=== PATIENT | female | born 1960 | race Caucasian/White ===

== ENCOUNTER → 2016-10-19 | Outpatient (CLI) | payer OTHER, BC ==
--- NOTE | 2016-10-19 11:15 | NOWCEV ---
[facility] OUTPATIENT REHABILITATION SERVICES WHEELCHAIR CLINIC EVALUATION AND LETTER OF JUSTIFICATION Patient Name: LUCIA LOPEZ Physician: Chris Anderson MD Eval Date: 10/19/16 Therapist: Myriam Byrne PT,MSPT Date of : 1960 MR#: [id number] Contact: [] Subscriber: LUCIA LPOEZ Primary Ins: MEDICARE OUTPATIENT Subscriber #: [id number] EVALUATION FINDINGS Medical history - Lucia is a 56y/o female with a 27year h/o relapsing remitting multiple sclerosis (MS). She reports having five exacerbations in the past two years, which all required hospitalization. When Lucia experiences an exacerbation she is not able to ambulate, even household distances. She also reports regularly having difficulty performing ADLs and household tasks due to her MS. Lucia was referred to this clinic by her doctor to have recommendations made for the most medically appropriate wheelchair to meet Lucia's needs within the home. Functional Mobility - Hinas mobility is limited by her MS. During a flair, she is unable to ambulate and relies on her to push her in a transport chair. When she is not experiencing a flair, Lucia can ambulate household distances with a sc or she furniture walks. She reports that in the community to attend medical apts she either utilizes a transport chair propelled by her , or holds onto her 's arm for support. On this date, Lucia is able to ambulate, but her gait is characterized by a slow pattern, with decreased trunk rotation, decreased arms swing, B feet ER, walking on the lateral boarder of her feet with decreased visual tracking. She reports her ability to ambulate fluctuates greatly depending on her fatigue. She experiences significant cramping/spasms in her shins, calves, thighs, and gluteals when walking short/household distances or when standing. This causes her to have to sit for several hours to recover prior to being able to walk again. Lucia is independent with stand step transfers with use of UE support and is independent with bed mobility. Motor involvement - Lucia's LEs are more greatly impacted by her MS than her UEs. MMT is as follows: DF B: 3/5, eversion B: 3+/5, inversion B: 4-/5, knee extension B: 4-/5, hip flexion B: 3+/5, hip abduction B: 2+/5, shoulder abduction B: 4-/5, shoulder flexion B: 4/5 with fatiguable weakness decreasing to 4-/5, elbow flexion B: 4/5, elbow extension B: 4/5. Lucia's strength can fluctuate greatly depending on her level of fatigue and if she is experiencing a flair. Lucia does have significant spasms in her LEs that cause her LEs to move into a rigid extensor pattern. This occurs when walking or when her feet are stimulated. She has tightness in B gastroc with 0degrees DF B, and tightness in B hamstrings. Posture - Lucia sit with level pelvis and shoulders. Skin Sensation - Lucia has neuropathy in B feet. Her sensation is absent in B feet and impaired up B legs to above her knees. She reports h/o a wound on her L conrad that took 9 months to heal, as well as fracturing her toe without knowing. Endurance - Lucia has poor endurance from her MS. When she is experiencing a MS flair, she is unable to ambulate, as she looses control of her LEs. She reports several of her hospitalizations have been prolonged due to her inability to ambulate household distances. When she is not experiencing a flair , she reports limited mobility within her home due to MS fatigue and weakness. She is frequently unable to participate in household tasks such as cooking, and spends much of her time bound to her couch because of her fatigue. She reports 2-3 "good" days a week where she can ambulate household distances, and 4-5 days a week where she has to sit or lay down for the majority of the day. At her best, she is able to ambulate a couple hundred feet, but this causes significant cramping in her shins, calves and thighs, causing her to have to take frequent breaks. She reports having to sit for several hours to recover prior to any continued activity. ADLs - Lucia performs ADLs such as bathing with adaptive strategies. She utilizes both grab bars and a shower seat to manage her fatigue. She relies on her to wash her hair, as her arms fatigue when holding them overhead. She is I with toileting. 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 She was forced into medical prison due to her frequent MS flairs. She lives with her in a 2 story home in which they are installing a stair lift to allow Lucia to access the upper level of the home. There are 2 steps to enter which they are going to install a ramp to allow wheelchair access. Current wheelchair - Lucia owns a transport chair which was purchased out of pocket. She utilizes the chair in the home when she is experiencing an MS flair. She is not able to self propel the transport chair, and has to be dependently pushed by her . MEDICAL and FUNCTIONAL NEED/OBJECTIVES * To procure an ultra light weight MWC to provide Lucia with safe and consistent access to her home and medical appointment when she is experiencing fatigue or exacerbation of her MS. PRIMARY FUNCTIONAL LIMITATION (G Code) * Mobility CURRENT STATUS OF PRIMARY FUNCTIONAL LIMITATION (Severity Modifier) * At least 40 percent but less than 60 percent impaired, limited or restricted ( CK) GOAL STATUS OF PRIMARY FUNCTIONAL LIMITATION (Severity Modifier) * At least 40 percent but less than 60 percent impaired, limited or restricted ( CK) DISCHARGE STATUS OF PRIMARY FUNCTIONAL LIMITATION (Severity Modifier) * At least 40 percent but less than 60 percent impaired, limited or restricted ( CK) EQUIPMENT RECOMMENDATIONS AND JUSTIFICATIONS The following recommendations are believed to be the most cost effective way to meet the patients medical and functional needs. * Ultra light weight folding frame MWC: Needed to provide Lucia with safe and consistent access to her home, and to maximize her participation in MRADLs when experiencing an exacerbation or increased fatigue/weakness from her MS. This is necessary, as Lucia experiences periods when she is unable to walk, even with an AD such as a cane or walker due to exacerbation of her MS where she loses control of her LEs. She is frequently not able to participate in MRADLs such as cooking or cleaning within the home due to fatigue and weakness from her MS, which limits her ability to walk and stand. An ultra light weight MWC will allow Lucia to access her home and conserve energy in order to maximize her function/participation even when experiencing an MS flair or exacerbation. Additionally it will decrease Lucia's reliance on her for household mobility. A standard weight MWC would not be appropriate as Lucia experiences significant fatiguable weakness. A heavier chair would cause fatigue and decrease her ability to participate in MRADLs. Additionally she would be unable to self propel a standard weight wheelchair up the ramp to enter her home. Lucia will be able to safely and independently transfer to/from her [facility]. * Skin protection positioning cushion: Needed to provide Lucia with appropriate pressure relief and distribution as she has severely impaired sensation and h/o poor wound healing. Additionally, a positioning cushion is necessary to maintain the position of Lucia's pelvis in her chair when she experiences extensor spasms. This will maximize her safely and posture for self propulsion. * Heel loops: Needed to maintain the position of Lucia's LEs and feet on her foot plates to maintain proper postural alignment in order to maximize ability to self propel and to manage her spasms. * Side guards: Needed to prevent Lucia's clothing from becoming caught in wheels when self propelling. * Anti-tippers: Needed to prevent Lucia's chair from tipping over backward when going up ramps or when she experiences spams which force her into an extensor pattern. * Pelvic positioning belt: Needed to stabilize the position of Lucia's pelvis in her chair when she experiences extensor spams, and for safety during propulsion. * Cane smith: Needed to allow Lucia to access her cane to ambulate short distances when a wheelchair is not appropriate such as when maneuvering in smaller spaces. This will prevent her cane from interfering with her propulsion strategy. These recommendations are based on the likelihood that Lucia will require the use of a wheelchair for mobility for the rest of her life. If you have any questions or concerns regarding the stated recommendations, please feel free to contact the therapist at . Thank you for your cooperation in obtaining the necessary equipment for this patient. TETE Guerra
== END ==
PROVIDERS: ATTEND Psychiatry & Neurology Neurology
DX: Z46.89 Encounter for fitting and adjustment of other specified devices (principal); G35 Multiple sclerosis; I10 Essential (primary) hypertension; E03.9 Hypothyroidism, unspecified; E11.9 Type 2 diabetes mellitus without complications; G47.30 Sleep apnea, unspecified
CPT/HCPCS: 97163; G8978; G8979; G8980

== ENCOUNTER 2017-02-10 06:43 | Day surgery (SDC) | payer OTHER, BC ==
[~2017-02-10 06:43] MED LIST: ceFAZolin 2 GM/DEXTROSE 100 ML IV ONE
[2017-02-10] MEDS ORDERED: BUPIVACAINE 0.5% 30 ML SDV ONE (06:45)
[2017-02-10] MEDS ORDERED: LR 1,000 ML IV ONE (06:58)
[2017-02-10] MEDS ORDERED: LIDOCAINE 1% 2 ML INJ ID PRN (06:58)
--- NOTE | 2017-02-10 07:22 | PDHPUP ---
History & Physical Update H&P update statement: This history and physical update is based on an assessment of the patient which was completed after admission or registration (within 24 hours), but prior to the surgery/procedure.
[2017-02-10 07:30] VITALS: PULSE 77
[2017-02-10] MEDS ORDERED: MIDAZOLAM 2 MG/2 ML VIAL ONE (07:36)
[2017-02-10] MEDS ORDERED: MIDAZOLAM 2 MG/2 ML VIAL IVP ONE (07:36)
--- NOTE | 2017-02-10 07:43 | PDANEPAE ---
ANE History of Present Illness Left hand surgery ANE Past Medical History - Cardiovascular History Hx Hypertension: Yes Hx Arrhythmias: No Hx Chest Pain: No Hx Coronary Artery / Peripheral Vascular Disease: No Hx CHF / Valvular Disease: No Hx Palpitations: No - Pulmonary History Hx COPD: No Hx Asthma/Reactive Airway Disease: No Hx Recent Upper Respiratory Infection: No Hx Oxygen in Use at Home: No Hx Sleep Apnea: Yes Sleep Apnea Screening Result - Last Documented: Positive Pulmonary History Comment: PT WILL BRING CPAP MACHINE - Neurologic History Hx Cerebrovascular Accident: No Hx Seizures: No Hx Dementia: No - Endocrine History Hx Diabetes: Yes Hypothyroid: Yes Obesity: mild - Renal History Hx Renal Disorders: No - Liver History Hx Hepatic Disorders: No - Neurological & Psychiatric Hx Hx Neurological and Psychiatric Disorders: Yes Neurological / Psychiatric History Comment: MS - Cancer History Hx Cancer: No - Congenital Disorder History Hx Congenital Disorders: No - GI History Hx Gastrointestinal Disorders: Yes Gastrointestinal History Comment: IBS SPASTIC COLON, - Other Health History Other Health History: NONE - Chronic Pain History Chronic Pain: Yes (MUSCLE SPASMS) - Surgical History Prior Surgeries: 1/2 THYROID REMOVED 1985. HYSRECTOMY 1989 ANE Review of Systems Review of Systems: - Exercise capacity METS (RN): 4 METS ANE Patient History - Allergies Allergies/Adverse Reactions: meperidine HCl [From Demerol] Allergy (Intermediate, Verified 09/09/15 10:17) Sulfa (Sulfonamide Antibiotics) Allergy (Intermediate, Verified 09/09/15 10:17) codeine [Codeine] Allergy (Unknown, Verified 09/09/15 10:17) bacitracin [From Triple Antibiotic] Allergy (Verified 09/09/15 10:17) bacitracin zinc [From Triple Antibiotic] Allergy (Verified 09/09/15 10:17) colistimethate sodium [From Triple Antibiotic] Allergy (Verified 09/09/15 10:17) fentanyl Allergy (Verified 02/08/17 18:10) glatiramer acetate [From Copaxone] Allergy (Verified 09/09/15 10:17) gramicidin D [From Triple Antibiotic] Allergy (Verified 09/09/15 10:17) morphine Allergy (Verified 09/09/15 10:17) neomycin sulfate [From Triple Antibiotic] Allergy (Verified 09/09/15 10:17) polymyxin B [From Triple Antibiotic] Allergy (Verified 09/09/15 10:17) polymyxin B sulfate [From Triple Antibiotic] Allergy (Verified 09/09/15 10:17) pramoxine HCl [From Triple Antibiotic] Allergy (Verified 09/09/15 10:17) - Home Medications Home Medications: AMITRIPTYLINE HCL [Amitriptyline 25 mg] 03/25/11 [Last Taken 02/09/17 22:00] Tizanidine HCl 03/25/11 [Last Taken 02/09/17 22:00] CALCIUM CARBONATE/VITAMIN D3 [CALCIUM + D 600 MG TABLET] 08/17/12 [Last Taken 02/08/17] Naproxen Sodium [Aleve 220 MG (*)] 08/17/12 [Last Taken 02/01/17] Stilwell-3 Fatty Acids [Fish Oil 1000 mg (*)] 08/17/12 [Last Taken 09/02/16] Vitamin B Complex [Vitamin B Complex (OTC)] 08/17/12 [Last Taken 02/01/17] Aspirin [Aspirin 325 mg (*)] 01/18/13 [Last Taken 02/06/17] Herbals/Supplements -Info Only 01/18/13 [Last Taken 02/01/17] Dalfampridine [AMPYRA] 12/07/13 [Last Taken 02/09/17 21:15] Dimethyl Fumarate [Tecfidera] 12/07/13 [Last Taken 02/10/17 05:30] Acetaminophen [Tylenol 325mg (*)] 02/09/17 [Last Taken 12/02/16] Baclofen [Baclofen 20 mg (*)] 02/09/17 [Last Taken 02/01/17] Basaglar Mohini U-100 02/09/17 [Last Taken 02/08/17 23:00] Estrogens,Conjugated [Premarin 0.625 MG (*)] 02/09/17 [Last Taken 02/10/17 05: 30] Hydrochlorothiazide [HCTZ (*)] 02/09/17 [Last Taken 02/09/17] Levothyroxine [Synthroid 75 mcg (*)] 02/09/17 [Last Taken 02/10/17 05:30] Meclizine HCl [Meclizine HCl 25 mg (RX,OTC)] 02/09/17 [Last Taken Unknown] Metoprolol Succinate Xr [Toprol Xl 50 mg (*)] 02/09/17 [Last Taken 02/10/17 05: 30] Simvastatin [Zocor 10 mg] 02/09/17 [Last Taken 02/02/17 22:30] Valsartan [Diovan (*)] 02/09/17 [Last Taken 02/10/17 05:30] metFORMIN HCL [Glucophage 850 mg (*)] PO 02/09/17 [Last Taken 02/09/17 18:00] - NPO status NPO Since - Liquids (Date): 02/09/17 NPO Since - Liquids (Time): 23:30 NPO Since - Solids (Date): 02/09/17 NPO Since - Solids (Time): 17:00 - Anes Hx Anes Hx: no prior problems - Smoking Hx Smoking Status: Never smoked - Alcohol Use Alcohol Use: None - Family Anes Hx Family Anes Hx: none Family Hx Anesthesia Complications: NONE ANE Labs/Vital Signs - Vital Signs Blood Pressure: 111/77 Heart Rate: 77 Respiratory Rate: 16 O2 Sat (%): 96 Height: 167.64 cm Weight: 87.09 kg ANE Physical Exam - Airway Neck exam: FROM Mallampati Score: Class 2 Mouth exam: normal dental/mouth exam - Pulmonary Pulmonary: no respiratory distress - ASA Status ASA Status: III ANE Anesthesia Plan Anesthesia Plan: GA w LMA
[2017-02-10] MEDS ORDERED: PROPOFOL/EMULSION 500 MG/50 ML BOTTLE IV ONE (07:53)
[2017-02-10] MEDS ORDERED: fentaNYL 100 MCG/2 ML INJ ONE (07:53)
[2017-02-10] MEDS ORDERED: PHENYLEPHRINE HCL 100 MCG/ML SYR ONE (08:19)
[2017-02-10] MEDS ORDERED: PROPOFOL 200 MG/20 ML VIAL ONE (08:29)
[2017-02-10] MEDS ORDERED: ONDANSETRON 4 MG/2 ML VIAL ONE (08:40)
[2017-02-10] MEDS ORDERED: DEXAMETHASONE 4 MG/ML VIAL ONE (08:46)
[2017-02-10] MEDS ORDERED: HYDROCODONE/APAP 5/325 TAB PO PRN (08:58)
[2017-02-10] MEDS ORDERED: ONDANSETRON 4 MG/2 ML VIAL IVP PRN (08:58)
[2017-02-10] MEDS ORDERED: NALOXONE HCL 0.4 MG/ML INJ IVP PRN (08:58)
[2017-02-10] MEDS ORDERED: fentaNYL 100 MCG/2 ML INJ IVP PRN (08:58)
--- NOTE | 2017-02-10 09:02 | POSTOPPROG ---
Post Op Note Date of Operation: 02/10/17 Surgeon: Eugene Thao [employer] Operator: none Anesthesiologist: himanshu Mirza Anesthesia: LMA Pre-op Diagnosis: Left Dupuytrens, palm Post-op Diagnosis: same Indication: pain Procedure: Dupuytren's excision Findings: Palmar facia thickening and nodularity Inf/Abcess present in the surg proc area at time of surgery?: No Depth: Deep Incisional (Fascial) EBL: Minimal Total fluids administered: 700cc Complications: none
--- NOTE | 2017-02-10 09:06 | POSTANESTH ---
Post Anesthetic Evaluation Cardiovascular Status: Normal, Stable Respiratory Status: Normal, Stable Level of Consciousness/Mental Status: Can Participate in Eval Pain Control: Adequate, Prn Tx Ordered Nausea/Vomiting Control: Adequate, Prn Tx Ordered Complications Possibly Related to Anesthesia: None Noted
--- NOTE | 2017-02-10 09:11 | GOP ---
[f rep st] OPERATIVE REPORT DATE OF OPERATION: 02/10/2017 SURGEON: Eugene Thao MD PREOPERATIVE DIAGNOSIS: Left palmar Dupuytren's nodularity. POSTOPERATIVE DIAGNOSIS: Left palmar Dupuytren's nodularity. PROCEDURE PERFORMED: Excision of palmar nodularity, left palm. FINDINGS: INDICATIONS: This patient has Dupuytren's contracture which has only caused slight flexion deformity of the long and ring fingers, but was affecting the palm of the hand for gripping activities because of multiple prominent nodules. She also had some extension down toward the index, long, and ring fi ngers, and it was felt that with time, she would not only have the nodularity and tenderness, but als o flexion contracture and excision at this point was a good option for her. DESCRIPTION OF PROCEDURE: Under general anesthesia, the patient's left arm was prepped and draped in the usual fashion and 0.5% plain Marcaine was instilled in the palm of the hand as well as around th e median and ulnar nerves at the distal third forearm. The arm tourniquet was applied at 250 mmHg. Three transverse incisions were made, one running parallel to the thenar crease, one just distal to t he distal flexion crease and one between the two flexion creases of the palm. The skin and subcutane ous tissue were elevated from the palmar fascia and the involved palmar fascia was clearly visualized . The normal palmar fascia was opalescent and the involved palmar fascia was rodriguez and granular. The involved palmar fascia was completely excised along with a margin of normal tissue and that sample w as sent to Pathology for evaluation. Underlying neurovascular and tendinous structures were protecte d during the excision and postoperatively it was assured that all neurovascular and tendinous structu res were uninjured. The wound was irrigated profusely with body temperature saline and then 0.5% cheyanne in Marcaine was instilled in the palm of the hand. The skin was closed with horizontal mattress sutu res of 5-0 Prolene loosely so that any bleeding in the palm of the hand could escape into the dressin g, and then a bulky soft pressure dressing was applied followed by palmar based fiberglass splint hol ding the palm immobilized but allowing finger range of motion. Tourniquet deflation resulted in imme diate pinking of the digits. She was brought to the recovery area where detailed postoperative instr uctions were given prior to discharge. A prescription for [place] and Keflex was provided. She had be en given 1 g of Ancef prior to commencement of surgery. Followup arrangements in the office for abou t a week postop for dressing and suture removal, remobilization exercises and night extension splinti ng, holding the fingers and the palm stretched into extension for 1 month. /[id number]/MODL
[2017-02-10 09:54] VITALS: RESP 15
[2017-02-10 11:10] VITALS: BP 102/61; O2SAT 93
[2017-02-10 11:12] VITALS: TEMP 97.9
== END 2017-02-10 10:40 | disposition home or self-care (01) ==
LOC: FSGY 06:43
PROVIDERS: ATTEND Specialist
PROC: 0JNK0ZZ Release Left Hand Subcutaneous Tissue and Fascia, Open Approach (ICD-10-PCS; principal; 2017-02-10 07:15)
PROC: 0JBK0ZX Excision of Left Hand Subcutaneous Tissue and Fascia, Open Approach, Diagnostic (ICD-10-PCS; principal; 2017-02-10 07:15)
DX: M72.0 Palmar fascial fibromatosis [Dupuytren] (principal); E11.9 Type 2 diabetes mellitus without complications; E78.5 Hyperlipidemia, unspecified; G35 Multiple sclerosis; E03.9 Hypothyroidism, unspecified; I10 Essential (primary) hypertension; G47.30 Sleep apnea, unspecified; Z87.440 Personal history of urinary (tract) infections
CPT/HCPCS: J0690; J1100; J2250; J2370; J2405; J2704; J3010

== ENCOUNTER → 2017-04-25 | Outpatient (CLI) | payer OTHER, BC | LOC: CIMAGING 14:48 | PROVIDERS: ATTEND Family Medicine | DX: Z12.31 Encounter for screening mammogram for malignant neoplasm of breast (principal) | CPT/HCPCS: G0202 ==

== ENCOUNTER → 2018-07-05 | Outpatient (CLI) | payer OTHER, BC ==
--- NOTE | 2018-07-05 15:15 | NOWCEV ---
[facility] OUTPATIENT REHABILITATION SERVICES WHEELCHAIR CLINIC EVALUATION AND LETTER OF JUSTIFICATION Patient Name: LUCIA LOPEZ Physician: MD Era Chan Date: 07/05/18 Therapist: Myriam Byrne PT,MSPT Date of : 1960 MR#: [id number] Contact: Lucia Lopez Subscriber: LUCIA LOPEZ Primary Ins: MEDICARE OUTPATIENT Subscriber #: EVALUATION FINDINGS Medical history - Lucia is a 56y/o female with a 29year h/o multiple sclerosis (MS). She reports having at least five exacerbations in the past several years, many requiring hospitalization. When Lucia experiences an exacerbation she is not able to ambulate, even household distances. She also reports regularly having difficulty performing ADLs and household tasks due to her MS. She reports that over the past 2 years she has experienced a decline in her UE strength, and is no longer able to self propel her MWC over changes in surfaces and thresholds in her home when having an exacerbation of her MS or when fatigued. Additionally Lucia had surgery on her R hand about 1 year ago to correct a Dupuytren's contracture which was irritated by self propulsion of her MWC and use of her sc. Lucia was referred to this clinic by her doctor to have recommendations made for the most medically appropriate power mobility device to preserve her independence/ability to access her home during an MS exacerbation. Functional Mobility - Hinas mobility is limited by her MS. During a flair, she is unable to ambulate and relies on her to push her MWC to access distances between the bedroom and bathroom. She used to be able to self propel her MWC household distances, but is now having significant difficulty self propelling over changes in surfaces (transition from wood floor to carpet) and over threshold. Therefore she relies on her for household mobility during exacerbations and when fatigued. When she is not experiencing an exacerbation, Lucia can ambulate household distances with a sc or she furniture walks. Although she reports that she has had about 6 falls in the past year, and reports that she loses her balance on a daily basis. Lucia's gait is characterized by a decreased heel strike, a slow pattern, with decreased trunk rotation, decreased arms swing, B feet ER, with decreased visual tracking. She reports her ability to ambulate fluctuates greatly depending on her fatigue. She experiences significant cramping/spasms in her shins, calves, thighs, and gluteals when walking short/household distances or when standing. This causes her to have to sit for several hours to recover prior to being able to walk again. She recently had botox injections in her calves which is helping to manage the pain and spasm. Lucia is modified independent with stand step transfers with use of UE support and is independent with bed mobility. Motor involvement - Lucia's strength is greatly impacted by her MS. MMT is as follows: DF B: 3-/5, eversion B: 3-/5, knee extension R: 4-/5, L: 3+/5, hip flexion R: 4-/5, L: 3+/5 hip abduction B: 2+/5, shoulder abduction B: 3+/5, shoulder flexion B: 4-/5 with fatiguable weakness decreasing to 3+/5. Lucia's strength can fluctuate greatly depending on her level of fatigue and if she is experiencing an MS exacerbation. She has significant tightness in B gastroc with 0degrees DF B, and tightness in B hamstrings. Posture - Lucia sit with level pelvis and shoulders. She has a posterior pelvic tilt and her shoulders are rounded and protracted. She sits with a forward head position. Skin Sensation - Lucia has neuropathy in B feet. Her sensation is absent in B feet and impaired up B legs to above her knees. She reports h/o a wound on her L conrad that took 9 months to heal, as well as fracturing her toe without knowing. Endurance - Lucia has poor endurance from her MS. When she is experiencing a MS exacerbation, she is unable to ambulate, as she looses control of her LEs, and she is unable to self propel her ultra light MWC household distances due to fatigue in her UEs. When she is not experiencing an exacerbation, she reports limited mobility within her home due to MS fatigue and weakness. She is frequently unable to participate in household tasks such as cooking, and spends much of her time bed bound due to her of her fatigue. On a "bad" day, Lucia reports that she can't self propel herself from the bedroom the the bathroom in her light weight MWC due to limited UE strength and fatigue. She reports "I try not to drink water when I'm having a bad day, because it's too hard to get to the bathroom". She reports 2-3 "good" days a week where she can ambulate household distances, and 4-5 days a week where she has to sit or lay down for the majority of the day. At her best, she is able to ambulate a hundred feet, but this causes significant cramping in her shins, calves and thighs, causing her to have to take frequent breaks. She reports having to sit for several hours to recover prior to any continued activity. To access medical appointment's, Lucia is pushed dependently by her in her MWC. ADLs - Lucia performs ADLs such as bathing with adaptive strategies. She utilizes both grab bars and a shower seat to manage her fatigue. She relies on her to wash her hair, as her arms fatigue when holding them overhead. She is modified I with toileting, although she is unable to access the bathroom independently when having an exacerbation, even in her MWC. 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 She was forced into medical residential due to her frequent MS exacerbations. She lives with her in an accessible home with ramp entry. She is fully cognizant and able to make her own medical decisions. Current wheelchair - Lucia owns an ultralight MWC which is about 3 years old. She is not longer able to self propel this chair between rooms in her home when having an MS exacerbation due to declining strength. Therefore she relies fully on her to push her in her chair to access MRADLs in her home during exacerbations, or on days when she is fatigued. Additionally, self propelling her MWC has increased irritation of the Dupuytren's in her L hand. MEDICAL and FUNCTIONAL NEED/OBJECTIVES To procure a power scooter to allow for safe and consistent access to MRADLs in her home during a MS exacerbation or when she is too fatigued to walk safely or self propel a MWC to access her home. EQUIPMENT RECOMMENDATIONS AND JUSTIFICATIONS The following recommendations are believed to be the most cost effective way to meet the patients medical and functional needs. * Power scooter: Needed to provide Lucia with safe and consistent access to MRADLs in her home during a MS exacerbation or when she is too fatigued to walk safely, even with an AD such as a cane or walker. She is no longer able to self propel her ultra lightweight MWC household distances when fatigued due to UE strength that has declined over the past several years, and severe fatigue from her MS. Additionally, propelling her ultra light weight MWC irritates the site on her L hand where she had surgery to correct a Dupuytren's contracture. A power scooter will provide Lucia with the ability to fully access her home to travel distances between the bedroom, bathroom, and kitchen to independently perform ADLs without assistance from her during an MS exacerbation, or when too fatigued to walk safely or self propel her w/c. Lucia will be able to safely complete stand step transfers to/from she power scooter and utilize a tiller to safely navigate her home. These recommendations are based on the likelihood that Lucia will require the use of a power mobility to access MRADLs in her home for the rest of her life. If you have any questions or concerns regarding the stated recommendations, please feel free to contact the therapist at . Thank you for your cooperation in obtaining the necessary equipment for this patient. TETE Guerra
== END ==
PROVIDERS: ATTEND Psychiatry & Neurology Neurology
DX: G35 Multiple sclerosis (principal); Z99.3 Dependence on wheelchair
CPT/HCPCS: 97162-GP